=== PATIENT | male | born 1960 | race Caucasian/White ===

== ENCOUNTER 2022-10-17 12:16 | Outpatient (CLI) | payer OTHER, SELFPAY | END 2022-10-17 12:17 | disposition home or self-care (01) | LOC: OP CLINIC 12:18 | PROVIDERS: PCP Family Medicine; Visit Provider Internal Medicine | DX: Z12.11 Encounter for screening for malignant neoplasm of colon (principal); K63.5 Polyp of colon; Z86.010 Personal history of colon polyps | CPT/HCPCS: 45380; 88305; J2250; J3010 ==

== ENCOUNTER 2022-11-11 11:58 | Outpatient (CLI) | payer OTHER, SELFPAY ==
[2022-11-11 14:09] LABS: Chloride* 104 mmol/L (96-114)
[2022-11-11 14:10] LABS: Potassium* 5.7 mmol/L (3.6-5.1); Sodium* 139 mmol/L (135-149)
[2022-11-11 14:12] LABS: Cholesterol* 238 mg/dL (90-199)
[2022-11-11 14:13] LABS: Blood Urea Nitrogen* 17 mg/dL (7-30); Carbon Dioxide* 28 mmol/L (20-32); Creatinine* 0.9 mg/dL (0.5-1.5); Estimated Glomerular Filt Rate 95 ml/min; Glucose* 110 mg/dL (60-115); Triglycerides* 89 mg/dL (40-149)
[2022-11-11 14:14] LABS: HDL Cholesterol* 52 mg/dL (>=40); LDL Cholesterol Calculated 168 mg/dL (<100)
[2022-11-11 14:45] LABS: PSA Screen* 1.67 ng/mL (0.10-4.00)
[2022-11-11 15:04] LABS: Vitamin B12* 520 pg/mL (243-894)
== END 2022-11-11 11:59 | disposition home or self-care (01) ==
PROVIDERS: PCP Family Medicine; Visit Provider Family Medicine
DX: Z00.00 Encounter for general adult medical examination without abnormal findings (principal); E78.5 Hyperlipidemia, unspecified; I10 Essential (primary) hypertension; G62.9 Polyneuropathy, unspecified; Z12.5 Encounter for screening for malignant neoplasm of prostate
CPT/HCPCS: 80048; 80061; 82607; 84153; 84443

== ENCOUNTER 2024-02-02 10:23 | Outpatient (CLI) | payer MEDICARE, BC, SELFPAY | END 2024-02-02 10:24 | disposition home or self-care (01) | PROVIDERS: PCP Family Medicine; Visit Provider Family Medicine | DX: E78.5 Hyperlipidemia, unspecified (principal); I10 Essential (primary) hypertension; R35.0 Frequency of micturition; Z12.5 Encounter for screening for malignant neoplasm of prostate | CPT/HCPCS: 80048; 80061; 84460; G0103 ==

== ENCOUNTER 2025-02-10 10:08 | Outpatient (CLI) | payer MEDICARE, BC, SELFPAY | END 2025-02-10 10:09 | disposition home or self-care (01) | PROVIDERS: PCP Family Medicine; Visit Provider Family Medicine | DX: I10 Essential (primary) hypertension (principal); E78.2 Mixed hyperlipidemia; Z12.5 Encounter for screening for malignant neoplasm of prostate | CPT/HCPCS: 80048; 80061; 84460; G0103 ==

== ENCOUNTER 2025-09-22 12:38 | Outpatient (CLI) | payer MEDICARE, BC, SELFPAY ==
--- NOTE | 2025-09-22 13:58 | P.ANES_ITS ---
Anesthesia Charges Start Date/Time Anesthesia Start Date: 09/22/25 Anesthesia Start Time: 13:36 Stop Date/Time Anesthesia Stop Date: 09/22/25 Anesthesia Stop Time: 14:00 Coding CPT Codes CPT Codes: CHATO LWR INTST NDSC NOS - [id number] ([id number]) P2 - PATIENT W/MILD SYST DISEASE, QK - CHEMICAL LAB TECHNICIAN 2-4 CNCRNT ANES PROC, QX - CAREER AND GUIDANCE COUNSELOR SVC W/ MD MED DIRECTION
--- NOTE | 2025-09-22 13:58 | W.ANESCHARGE ---
Anesthesia Charges Start Date/Time Anesthesia Start Date: 09/22/25 Anesthesia Start Time: 13:36 Stop Date/Time Anesthesia Stop Date: 09/22/25 Anesthesia Stop Time: 14:00 Coding CPT Codes CPT Codes: CHATO LWR INTST NDSC NOS - [id number] ([id number]) P2 - PATIENT W/MILD SYST DISEASE, QK - SURGERY TECHNICIAN 2-4 CNCRNT ANES PROC, QX - LEAD DESIGNER SVC W/ MD MED DIRECTION
--- NOTE | 2025-09-22 13:59 | P.ANES_ITS ---
Anesthesia Charges Start Date/Time Anesthesia Start Date: 09/22/25 Anesthesia Start Time: 13:36 Stop Date/Time Anesthesia Stop Date: 09/22/25 Anesthesia Stop Time: 14:00 Coding CPT Codes CPT Codes: CHATO LWR INTST NDSC NOS - [id number] ([id number]) P2 - PATIENT W/MILD SYST DISEASE, QK - PRIVATE BANKER 2-4 CNCRNT ANES PROC, QX - PREFORMING MACHINE OPERATOR SVC W/ MD MED DIRECTION
--- NOTE | 2025-09-22 13:59 | W.ANESCHARGE ---
Anesthesia Charges Start Date/Time Anesthesia Start Date: 09/22/25 Anesthesia Start Time: 13:36 Stop Date/Time Anesthesia Stop Date: 09/22/25 Anesthesia Stop Time: 14:00 Coding CPT Codes CPT Codes: CHATO LWR INTST NDSC NOS - [id number] ([id number]) P2 - PATIENT W/MILD SYST DISEASE, QK - GRADUATE FELLOW 2-4 CNCRNT ANES PROC, QX - COURT SUPERVISOR SVC W/ MD MED DIRECTION
== END 2025-09-22 12:39 | disposition home or self-care (01) ==
LOC: OP CLINIC 12:39
PROVIDERS: PCP Family Medicine; Visit Provider Internal Medicine
DX: D12.3 Benign neoplasm of transverse colon (principal); K63.89 Other specified diseases of intestine; Z86.0100 Personal history of colon polyps, unspecified
CPT/HCPCS: 00811; 45380; 45385; J2704